=== PATIENT | female | born 1940 | race African-American/Black ===

== ENCOUNTER 2017-07-30 13:40 | Emergency (ER) | payer OTHER ==
[~2017-07-30] VITALS: Ht 165.1 cm; Wt 86.0 kg
[2017-07-30] MEDS ORDERED: IPRATROPIUM BROMIDE (0.02%) 0.5MG/2.5ML NEB HHN STA (15:09)
[2017-07-30] MEDS ORDERED: METHYLPREDNISOLONE SOD SUCC 125 MG/2 ML VIAL IV STA (15:09)
[2017-07-30] MEDS ORDERED: SODIUM CHLORIDE 0.9% 500 ML IV ONE (15:15)
[2017-07-30] MEDS ORDERED: ALBUTEROL (0.083%) 2.5MG/3ML NEB HHN SCH (15:30)
[2017-07-30 15:42] LABS: HEMATOCRIT. 44.1 % (36.0-48.0); HEMOGLOBIN. 15.1 g/dL (12.0-16.0); MEAN CORPUSCULAR HEMOGLOBIN 29.3 pg (28.0-32.0); MEAN CORPUSCULAR VOLUME 85.9 fL (81.0-99.0); MEAN PLATELET VOLUME 8.2 fl (7.4-10.4); PLATELET 192 x1000/uL (130-400); RED BLOOD CELL COUNT 5.14 mill/uL (4.2-5.4); RED CELL DISTRIBUTION WIDTH 14.7 % (11.6-14.6)
[2017-07-30 15:50] LABS: CARBON DIOXIDE 29 mEq/L (21-32); CHLORIDE 103 mEq/L (98-107); TROPONIN I < 0.02 ng/mL (0.00-0.04)
[2017-07-30 16:26] LABS: PLATELET ESTIMATE NORMAL
[2017-07-30 19:04] VITALS: BP 168/77
== END 2017-07-30 19:09 | disposition home or self-care (01) ==
LOC: ER 15:53
DX: J44.1 Chronic obstructive pulmonary disease with (acute) exacerbation (principal); I10 Essential (primary) hypertension; R00.0 Tachycardia, unspecified; Z85.89 Personal history of malignant neoplasm of other organs and systems; Z98.890 Other specified postprocedural states
CPT/HCPCS: 36415; 71010; 80053; 84484; 85025; 93005; 94640; 96361; 96374; 99285; J2930; J7040; J7611

== ENCOUNTER 2025-04-21 17:03 | Emergency (ER) | payer MEDICARE, OTHER ==
[~2025-04-21] VITALS: Ht 162.6 cm; Wt 78.0 kg
[~2025-04-21 17:03] MED LIST: BISO5TAB13 MT; BUME0.5T6 PO; EMPA10TA MT; POTA8CAP20 MT; SACU1TAB PO
[2025-04-21 17:05] VITALS: TEMP 37.2
[2025-04-21 18:26] LABS: BASOPHILS % 0.5 % (0.0-2.0); EOSINOPHILS % 6.5 % (0.0-5.0); HEMATOCRIT. 38.7 % (36.0-48.0); HEMOGLOBIN. 12.8 g/dL (12.0-16.0); LYMPHOCYTES % 21.5 % (20.0-50.0); MEAN CORPUSCULAR HEMOGLOBIN 29.7 pg (28.0-32.0); MEAN CORPUSCULAR VOLUME 90.1 fL (81.0-99.0); MEAN PLATELET VOLUME 9.5 fl (7.4-10.4); MONOCYTES % 6.4 % (2.0-8.0); NEUTROPHILS % 65.1 % (40.0-76.0); PLATELET 134 x1000/uL (130-400); RED BLOOD CELL COUNT 4.29 mill/uL (4.2-5.4); WHITE BLOOD COUNT 4.9 x1000/uL (4.5-11.0)
[2025-04-21 18:38] LABS: CHLORIDE 102 mEq/L (98-107); POTASSIUM 3.4 mEq/L (3.5-5.1)
[2025-04-21 18:39] LABS: CARBON DIOXIDE 28 mEq/L (21-32); SODIUM 140 mEq/L (136-145)
[2025-04-21 18:40] LABS: CALCIUM 9.5 mg/dL (8.7-10.4)
[2025-04-21 18:44] LABS: CREATININE 0.9 mg/dL (0.6-1.0)
[2025-04-21 18:45] LABS: GLUCOSE 95 mg/dL (70-105); UREA NITROGEN BLOOD 16 mg/dL (9-23)
[2025-04-21 18:52] LABS: TROPONIN I HIGH SENSITIVITY 270 ng/L (3.0-34)
[2025-04-21] MEDS: MAGNESIUM 2 G PREMIX 50 ML IV ONE (19:25)
[2025-04-21] MEDS: ENOXAPARIN 80MG/0.8ML SYR SUBCUT ONE (19:25)
[2025-04-21] MEDS: ASPIRIN 81MG TABLET PO ONE (19:25)
[2025-04-21] MEDS: FUROSEMIDE 40MG/4ML VIAL IVP ONE (19:25)
[2025-04-21] MEDS: POTASSIUM CHLORIDE 20MEQ TABLET SR PO ONE (19:25)
[2025-04-21 20:40] LABS: TROPONIN I HIGH SENSITIVITY 284 ng/L (3.0-34)
[2025-04-21 20:45] VITALS: O2SAT 99
[2025-04-21] MEDS ORDERED: SACU1TAB7 PO (20:58)
[2025-04-21] MEDS ORDERED: MYCO500T PO (20:58)
[2025-04-21] MEDS ORDERED: POTA-204 PO (20:58)
[2025-04-21] MEDS ORDERED: EMPA25TA PO (20:58)
[2025-04-21] MEDS ORDERED: ACETAMINOPHEN 325MG TABLET PO PRN ×2 (21:15)
[2025-04-21] MEDS ORDERED: DOCUSATE SODIUM 100MG CAPSULE PO PRN (21:15)
[2025-04-21] MEDS ORDERED: CLONIDINE 0.1MG TABLET PO PRN (21:15)
[2025-04-21] MEDS ORDERED: ONDANSETRON HCL 4MG/2ML INJ IV PRN (21:15)
[2025-04-21] MEDS ORDERED: MAGNESIUM/ALUMINUM HYDROXIDE/SIMETHICONE 30ML UDC PO PRN (21:15)
[2025-04-21] MEDS ORDERED: GUAIFENESIN-DM 200MG-20MG/10ML UDC PO PRN (21:30)
[2025-04-21 21:52] VITALS: BP 104/82
[2025-04-21 21:52] LABS: ALANINE AMINOTRANSFERASE < 7 IU/L (10-49)
[2025-04-21 21:53] LABS: ALBUMIN 4.2 g/dL (3.2-4.8); ASPARTATE AMINOTRANSFERASE 19 IU/L (<34); BILIRUBIN DIRECT 0.3 mg/dL (<=3.0); BILIRUBIN TOTAL 1.1 mg/dL (0.1-1.0); PHOSPHORUS 2.5 mg/dL (2.5-4.9); PROTEIN TOTAL 6.8 g/dL (6.0-8.3)
[2025-04-21 21:55] LABS: T4 FREE 1.57 ng/dL (0.89-1.76); THYROID STIMULATING HORMONE 0.71 uIU/mL (0.55-4.78)
[2025-04-21 22:03] LABS: D-DIMER 0.44 mg/L FEU (<0.50); INR 1.1; PROTHROMBIN TIME 11.7 sec (9.6-11.0)
[2025-04-21] MEDS: IPRATROPIUM/ALBUTEROL 0.5-3(2.5)MG/3ML NEB HHN PRN (22:04)
[2025-04-21 22:07] VITALS: PULSE 104; RESP 26; O2SAT 100
[2025-04-21] MEDS ORDERED: METHYLPREDNISOLONE SOD SUCC 40MG/ML (ACT-O-VIAL) IV SCH (22:19)
[2025-04-22] MEDS ORDERED: IPRATROPIUM/ALBUTEROL 0.5-3(2.5)MG/3ML NEB HHN SCH
[2025-04-22] MEDS ORDERED: PANTOPRAZOLE 40MG DR TABLET PO SCH (07:50)
[2025-04-22] MEDS ORDERED: POTASSIUM CHLORIDE 20MEQ TABLET SR PO SCH (09:00)
[2025-04-22] MEDS ORDERED: ENOXAPARIN 40MG/0.4ML SYR SUBCUT SCH (09:00)
[2025-04-22] MEDS ORDERED: FUROSEMIDE 40MG/4ML VIAL IVP SCH (09:00)
[2025-04-22] MEDS ORDERED: EMPAGLIFLOZIN 25MG TABLET PO SCH (09:00)
[2025-04-22] MEDS ORDERED: MYCOPHENOLATE MOFETIL 500MG TABLET PO SCH (09:00)
== END 2025-04-21 22:31 | disposition left against medical advice (07) ==
LOC: ER 17:03 → EDBEDREQ 21:12 → ENRESERV 21:39 → ER 22:31
DX: I21.4 Non-ST elevation (NSTEMI) myocardial infarction (principal); J44.1 Chronic obstructive pulmonary disease with (acute) exacerbation; I11.0 Hypertensive heart disease with heart failure; I50.9 Heart failure, unspecified; Z79.899 Other long term (current) drug therapy; Z79.84 Long term (current) use of oral hypoglycemic drugs; Z79.624 Long term (current) use of inhibitors of nucleotide synthesis
CPT/HCPCS: 80076; 80048; 83036; 83880; 84439; 83735; 84100; 84443; 85025; 85379; 85610; 84484; 36415; 84145; 71045; 94640; 93005; 96365; 96375; 99291; J1940; J3475; J1650